=== PATIENT | female | born 1945 | race Caucasian/White ===

== ENCOUNTER 2017-06-30 10:53 | Inpatient (IN) | payer OTHER ==
[~2017-06-30] VITALS: Ht 152.4 cm; Wt 69.4 kg
[~2017-06-30 10:53] MED LIST: AMARYL1 MG PO; AMLODIPINE5 M1 PO; ATORVASTATIN CA40 M1 PO; CLINDAMYCIN HC300 MG PO; COUMADIN3 MG; COUMADIN3 MG PO; JANUVIA100 M1 PO; K10 PO; LAC PO; LEVAQUIN750 MG PO; LEVOTHYROXIN0.025 M2 PO; METFORMIN HCL1000 MG PO; NITROGLYCERIN0.4 MG SL; OXYBUTYNIN CHLO10 MG PO
[2017-06-30 12:06] LABS: PLATELET COUNT 352 x10^3mcL (130-400)
[2017-06-30 12:11] LABS: CARBON DIOXIDE 26.7 mmol/L (21-32); CHLORIDE SERUM 94 mmol/L (98-107); CREATININE SERUM 1.2 mg/dL (0.6-1.0); GLUCOSE SERUM 200 mg/dL (74-106); POTASSIUM SERUM 3.6 mmol/L (3.5-5.1); SODIUM SERUM 133 mmol/L (136-145)
[2017-06-30 12:17] LABS: ALKALINE PHOSPHATASE 82 U/L (46-116); ALT/SGPT 27 U/L (14-59); AST/SGOT 48 U/L (15-37); BILIRUBIN TOTAL 1.19 mg/dL (0.20-1.00); TOTAL PROTEIN, SERUM 7.8 g/dL (6.4-8.2)
[2017-06-30 12:18] LABS: ALBUMIN 2.4 g/dL (3.4-5.0)
[2017-06-30] MEDS ORDERED: METFORMIN500 M1 PO (13:11)
[2017-06-30] MEDS ORDERED: KLOR-CON M2020 MEQ PO (13:12)
[2017-06-30] MEDS ORDERED: JANTOVEN2 MG PO (13:13)
[2017-06-30] MEDS ORDERED: NOR5 PO (13:13)
[2017-06-30] MEDS ORDERED: AMARYL4 MG PO (13:14)
[2017-06-30] MEDS ORDERED: JANUVIA50 M1 PO (13:14)
[2017-06-30] MEDS ORDERED: LEVOTHYROXIN0.025 M2 PO (13:14)
[2017-06-30] MEDS ORDERED: ATORVASTATIN CA40 M1 PO (13:14)
[2017-06-30] MEDS ORDERED: DITROPAN XL10 MG PO (13:15)
[2017-06-30] MEDS ORDERED: D-20001 TAB PO (13:15)
[2017-06-30] MEDS ORDERED: HYDROCHLOROTHIA25 MG PO (13:15)
[2017-06-30] MEDS ORDERED: ECOTRIN81 M2 PO (13:16)
[2017-06-30 13:29] LABS: AMPHETAMINE QUAL UR NONE DETECTED (NEG <=1000)
[2017-06-30 13:38] VITALS: BP 125/71
[2017-06-30 13:47] VITALS: BP 125/71
[2017-06-30 13:49] VITALS: Ht 152.4 cm; Wt 69.4 kg
[2017-06-30 13:50] LABS: microscopic required? YES; urine erythrocyte 2+ (NEGATIVE)
[2017-06-30 13:50] LABS: MAGNESIUM 1.4 mg/dL (1.8-2.4); PHOSPHOROUS 2.9 mg/dL (2.5-4.9)
[2017-06-30 13:58] LABS: T3 TOTAL 0.45 ng/mL
[2017-06-30 14:00] LABS: BAND NEUTROPHIL 0 % (0-10); BASOPHIL 0 % (0-2); MONOCYTE 5 % (0-7); SEGMENTED NEUTROPHILS 88 % (37-75)
[2017-06-30 14:01] LABS: PLATELET MORPHOLOGY PLATELETS NORMAL; rbc morphology (normal/abnorm) NORMAL (NORMAL)
[2017-06-30 14:02] LABS: FREE T4 1.95 ng/dL (0.76-1.46); FREE THYROXINE INDEX 3.7 ug/dL (1.4-4.5); T4(THYROXINE) 9.3 ug/dL (4.7-13.3)
[2017-06-30 16:46] VITALS: BP 138/53
[2017-06-30 21:41] VITALS: BP 117/53
[2017-07-01 05:20] VITALS: BP 107/42
[2017-07-01 06:46] LABS: CALCIUM 8.6 mg/dL (8.5-10.1); CARBON DIOXIDE 28.5 mmol/L (21-32); CHLORIDE SERUM 96 mmol/L (98-107); CREATININE SERUM 1.1 mg/dL (0.6-1.0); SODIUM SERUM 135 mmol/L (136-145)
[2017-07-01 06:49] LABS: GLUCOSE SERUM 46 mg/dL (74-106); POTASSIUM SERUM 2.8 mmol/L (3.5-5.1)
[2017-07-01 06:51] LABS: BASOPHIL % 0.3 % (0-2); RED CELL DISTRIBUTION WIDTH 13.9 % (11.5-14.5)
[2017-07-01 07:06] LABS: PLATELET COUNT 422 x10^3mcL (130-400)
[2017-07-01 09:10] VITALS: BP 125/56
[2017-07-01 10:30] VITALS: BP 125/56
[2017-07-01 13:04] VITALS: BP 123/61
[2017-07-01 16:55] VITALS: BP 136/66
[2017-07-01 19:52] LABS: CALCIUM 8.7 mg/dL (8.5-10.1); CARBON DIOXIDE 25.5 mmol/L (21-32); CHLORIDE SERUM 96 mmol/L (98-107); CREATININE SERUM 1.2 mg/dL (0.6-1.0); GLUCOSE SERUM 192 mg/dL (74-106); POTASSIUM SERUM 3.9 mmol/L (3.5-5.1); SODIUM SERUM 133 mmol/L (136-145)
[2017-07-01 21:41] VITALS: BP 128/56
[2017-07-02 05:23] VITALS: BP 114/63
[2017-07-02 08:21] LABS: BASOPHIL % 0 % (0-2); PLATELET COUNT 490 x10^3mcL (130-400); RED CELL DISTRIBUTION WIDTH 14.1 % (11.5-14.5)
[2017-07-02 10:15] VITALS: BP 151/70
[2017-07-02 10:22] VITALS: BP 101/59
[2017-07-02 11:09] LABS: CALCIUM 8.5 mg/dL (8.5-10.1); CARBON DIOXIDE 24.1 mmol/L (21-32); CHLORIDE SERUM 99 mmol/L (98-107); CREATININE SERUM 1.1 mg/dL (0.6-1.0); GLUCOSE SERUM 302 mg/dL (74-106); POTASSIUM SERUM 3.5 mmol/L (3.5-5.1); SODIUM SERUM 134 mmol/L (136-145)
[2017-07-02 14:43] VITALS: BP 124/64
[2017-07-02 17:01] VITALS: BP 127/60
[2017-07-02 20:26] VITALS: BP 124/62
[2017-07-03 05:05] VITALS: BP 123/57
[2017-07-03 06:32] LABS: BASOPHIL % 0.2 % (0-2); RED CELL DISTRIBUTION WIDTH 14.1 % (11.5-14.5)
[2017-07-03 07:47] LABS: PLATELET COUNT 614 x10^3mcL (130-400)
[2017-07-03 07:57] LABS: CALCIUM 9.5 mg/dL (8.5-10.1); CARBON DIOXIDE 25.3 mmol/L (21-32); CHLORIDE SERUM 103 mmol/L (98-107); CREATININE SERUM 1.1 mg/dL (0.6-1.0); GLUCOSE SERUM 62 mg/dL (74-106); POTASSIUM SERUM 3.5 mmol/L (3.5-5.1); SODIUM SERUM 139 mmol/L (136-145)
[2017-07-03 09:31] VITALS: BP 103/64
[2017-07-03] MEDS ORDERED: CLINDAMYCIN HC300 MG PO (12:18)
[2017-07-03 12:48] VITALS: BP 146/59
[2017-07-03] MEDS ORDERED: LAC PO (13:16)
[2017-07-03] MEDS ORDERED: LEVAQUIN500 M1 PO (13:21)
[2017-07-03 13:53] VITALS: BP 146/59
[2017-07-03 17:19] VITALS: BP 156/70
== END 2017-07-03 17:25 | disposition home health service (06) | DRG 177 ==
LOC: ED 10:53 → DU 12:50
PROVIDERS: Emergency Medicine Emergency Medical Services; Family Medicine
DX: J69.0 Pneumonitis due to inhalation of food and vomit (principal); E43 Unspecified severe protein-calorie malnutrition; N17.0 Acute kidney failure with tubular necrosis; E87.1 Hypo-osmolality and hyponatremia; N39.0 Urinary tract infection, site not specified; R31.9 Hematuria, unspecified; E11.65 Type 2 diabetes mellitus with hyperglycemia; E83.42 Hypomagnesemia; E87.6 Hypokalemia; I10 Essential (primary) hypertension; E03.9 Hypothyroidism, unspecified; N32.81 Overactive bladder; Z88.6 Allergy status to analgesic agent; Z88.0 Allergy status to penicillin; Z88.8 Allergy status to other drugs, medicaments and biological substances; Z86.73 Personal history of transient ischemic attack (TIA), and cerebral infarction without residual deficits; Z95.3 Presence of xenogenic heart valve; Z90.49 Acquired absence of other specified parts of digestive tract; Z79.4 Long term (current) use of insulin; Z82.5 Family history of asthma and other chronic lower respiratory diseases; Z68.30 Body mass index [BMI] 30.0-30.9, adult
CPT/HCPCS: 82962; 83880; 84439; 85378; 87804; 94150; 97110-GP; 97116-GP; 97530-GP; J1815; J1956; J2920; J2930; J3475; J3480; J3490; J7030; J7620; Q0092; Q9967

== ENCOUNTER 2018-05-05 17:30 | Observation (INO) | payer OTHER ==
[~2018-05-05] VITALS: Ht 144.8 cm; Wt 63.5 kg
[~2018-05-05 17:30] MED LIST changes: +AMARYL4 MG PO; +D-20001 TAB PO; +DITROPAN XL10 MG PO; +ECOTRIN81 M2 PO; +HYDROCHLOROTHIA25 MG PO; +JANTOVEN2 MG PO; +JANUVIA50 M1 PO; +KLOR-CON M2020 MEQ PO; +LEVAQUIN500 M1 PO; +METFORMIN500 M1 PO; +NOR5 PO
[2018-05-05 17:35] VITALS: Ht 144.8 cm; Wt 63.5 kg
[2018-05-05 18:33] LABS: BASOPHIL % 0.1 % (0-2); PLATELET COUNT 268 x10^3mcL (130-400); RED CELL DISTRIBUTION WIDTH 14.1 % (11.5-14.5)
[2018-05-05 18:35] LABS: CALCIUM 8.8 mg/dL (8.5-10.1); CARBON DIOXIDE 33.2 mmol/L (21-32); CHLORIDE SERUM 98 mmol/L (98-107); CREATININE SERUM 1.2 mg/dL (0.6-1.0); GLUCOSE SERUM 237 mg/dL (74-106); POTASSIUM SERUM 4.2 mmol/L (3.5-5.1); SODIUM SERUM 135 mmol/L (136-145)
[2018-05-05 18:40] LABS: ALKALINE PHOSPHATASE 83 U/L (46-116); ALT/SGPT 24 U/L (14-59); AMYLASE 86 U/L (25-115); AST/SGOT 24 U/L (15-37); BILIRUBIN TOTAL 0.46 mg/dL (0.20-1.00); HDL CHOLESTEROL 35 mg/dL (40-60); LIPASE 131 IU/L (73-393); TOTAL PROTEIN, SERUM 7.4 g/dL (6.4-8.2)
[2018-05-05 18:41] LABS: ALBUMIN 3.3 g/dL (3.4-5.0); CHOLESTEROL 95 mg/dL (<200)
[2018-05-05 20:37] LABS: UA SPECIFIC GRAVITY <=1.005 (1.005-1.035); microscopic required? YES; urine erythrocyte 2+ (NEGATIVE)
[2018-05-05] MEDS ORDERED: K-TAB20 MEQ PO (20:38)
[2018-05-05] MEDS ORDERED: ATORVASTATIN CA40 M1 PO (20:39)
[2018-05-05] MEDS ORDERED: NOR5 PO (20:39)
[2018-05-05] MEDS ORDERED: SYNTHROID0.05 MG PO (20:39)
[2018-05-05] MEDS ORDERED: DITROPAN XL10 MG PO (20:40)
[2018-05-05] MEDS ORDERED: HYDROCHLOROTHIA25 MG PO (20:40)
[2018-05-05] MEDS ORDERED: D3-50001 TAB PO (20:41)
[2018-05-05] MEDS ORDERED: GOOD SENSE ASPI81 M3 PO (20:41)
[2018-05-05] MEDS ORDERED: METFORMIN HCL500 MG PO (20:42)
[2018-05-05] MEDS ORDERED: COUMADIN2 MG PO (20:42)
[2018-05-05] MEDS ORDERED: AMARYL4 MG PO (20:42)
[2018-05-05] MEDS ORDERED: MAGNESIUM100 MG PO (20:42)
[2018-05-05] MEDS ORDERED: ZOF4 PO (20:43)
[2018-05-05] MEDS ORDERED: NITROGLYCERIN0.4 MG SL (20:43)
[2018-05-05 20:59] LABS: AMPHETAMINE QUAL UR NONE DETECTED (See below)
[2018-05-05 22:13] VITALS: BP 142/54
[2018-05-06 05:23] VITALS: BP 138/72
[2018-05-06 06:35] LABS: BASOPHIL % 0.3 % (0-2); PLATELET COUNT 245 x10^3mcL (130-400); RED CELL DISTRIBUTION WIDTH 13.7 % (11.5-14.5)
[2018-05-06 06:44] LABS: CALCIUM 8.8 mg/dL (8.5-10.1); CHLORIDE SERUM 100 mmol/L (98-107); CREATININE SERUM 1.1 mg/dL (0.6-1.0); GLUCOSE SERUM 144 mg/dL (74-106); SODIUM SERUM 138 mmol/L (136-145)
[2018-05-06 08:00] VITALS: BP 135/50
[2018-05-06 12:15] VITALS: BP 145/65
[2018-05-06 12:40] VITALS: BP 135/50
== END 2018-05-06 13:24 | disposition home or self-care (01) | DRG 605 ==
LOC: ED 17:30 → DU 20:57 → EDBEDREQ 21:40 → DU 21:58
PROVIDERS: Emergency Medicine; Internal Medicine Pulmonary Disease
DX: S00.83XA Contusion of other part of head, initial encounter (principal); S01.511A Laceration without foreign body of lip, initial encounter; S40.011A Contusion of right shoulder, initial encounter; S60.042A Contusion of left ring finger without damage to nail, initial encounter; S60.052A Contusion of left little finger without damage to nail, initial encounter; E11.9 Type 2 diabetes mellitus without complications; I10 Essential (primary) hypertension; E78.5 Hyperlipidemia, unspecified; E03.9 Hypothyroidism, unspecified; Z79.01 Long term (current) use of anticoagulants; Z86.73 Personal history of transient ischemic attack (TIA), and cerebral infarction without residual deficits; Z95.2 Presence of prosthetic heart valve; W18.09XA Striking against other object with subsequent fall, initial encounter; Y92.015 Private garage of single-family (private) house as the place of occurrence of the external cause
CPT/HCPCS: 82962; 83880; 90715; 97116-GP; G0378; Q0092

== ENCOUNTER 2019-02-04 05:58 | Emergency (ER) | payer OTHER ==
[~2019-02-04] VITALS: Ht 152.4 cm; Wt 68.0 kg
[~2019-02-04 05:58] MED LIST changes: +COUMADIN2 MG PO; +D3-50001 TAB PO; +GOOD SENSE ASPI81 M3 PO; +K-TAB20 MEQ PO; +MAGNESIUM100 MG PO; +METFORMIN HCL500 MG PO; +SYNTHROID0.05 MG PO; +ZOF4 PO
[2019-02-04 06:02] VITALS: Ht 152.4 cm; Wt 68.0 kg
[2019-02-04 06:54] LABS: BASOPHIL % 0.2 % (0-2); PLATELET COUNT 302 x10^3mcL (130-400); RED CELL DISTRIBUTION WIDTH 14.1 % (11.5-14.5)
[2019-02-04 07:19] LABS: CALCIUM 8.5 mg/dL (8.5-10.1); CARBON DIOXIDE 27.8 mmol/L (21-32); CHLORIDE SERUM 102 mmol/L (98-107); CREATININE SERUM 1.2 mg/dL (0.6-1.0); GLUCOSE SERUM 125 mg/dL (74-106); POTASSIUM SERUM 3.9 mmol/L (3.5-5.1); SODIUM SERUM 140 mmol/L (136-145)
[2019-02-04 08:58] VITALS: BP 117/45
== END 2019-02-04 09:20 | disposition home or self-care (01) ==
LOC: ED 05:58
PROVIDERS: Specialist
DX: R60.0 Localized edema (principal); D72.829 Elevated white blood cell count, unspecified; I10 Essential (primary) hypertension; E11.9 Type 2 diabetes mellitus without complications; E03.9 Hypothyroidism, unspecified; Z98.890 Other specified postprocedural states; Z86.73 Personal history of transient ischemic attack (TIA), and cerebral infarction without residual deficits; Z88.0 Allergy status to penicillin; Z88.5 Allergy status to narcotic agent
CPT/HCPCS: 36415; Q0092

== ENCOUNTER 2020-03-07 14:34 | Emergency (ER) | payer OTHER ==
[~2020-03-07] VITALS: Ht 162.6 cm; Wt 68.0 kg
[2020-03-07 14:45] VITALS: Ht 162.6 cm; Wt 68.0 kg
[2020-03-07 15:35] LABS: BASOPHIL % 0.3 % (0-2); PLATELET COUNT 297 x10^3mcL (130-400); RED CELL DISTRIBUTION WIDTH 14.3 % (11.5-14.5)
[2020-03-07 15:51] LABS: CALCIUM 8.9 mg/dL (8.5-10.1); CARBON DIOXIDE 29.1 mmol/L (21-32); CHLORIDE SERUM 101 mmol/L (98-107); CREATININE SERUM 1.3 mg/dL (0.6-1.0); GLUCOSE SERUM 196 mg/dL (74-106); POTASSIUM SERUM 3.7 mmol/L (3.5-5.1); SODIUM SERUM 137 mmol/L (136-145)
[2020-03-07 15:58] LABS: ALBUMIN 3.1 g/dL (3.4-5.0); ALKALINE PHOSPHATASE 65 U/L (46-116); ALT/SGPT 30 U/L (14-59); AST/SGOT 24 U/L (15-37); BILIRUBIN TOTAL 0.44 mg/dL (0.20-1.00)
[2020-03-07 19:16] VITALS: BP 172/52
== END 2020-03-07 19:16 | disposition home or self-care (01) ==
LOC: ED 14:34
PROVIDERS: Emergency Medicine
DX: R07.89 Other chest pain (principal); R06.02 Shortness of breath; I10 Essential (primary) hypertension; E11.9 Type 2 diabetes mellitus without complications; E03.9 Hypothyroidism, unspecified; E78.00 Pure hypercholesterolemia, unspecified; Z88.0 Allergy status to penicillin; Z88.8 Allergy status to other drugs, medicaments and biological substances; Z86.73 Personal history of transient ischemic attack (TIA), and cerebral infarction without residual deficits